=== PATIENT | female | born 1940 | race Caucasian/White ===

== ENCOUNTER 2019-03-03 15:00 | Emergency (ER) | payer MEDICARE, OTHER, SELFPAY ==
[2019-03-03 15:01] VITALS: BP 138/92; PULSE 112; RESP 20; TEMP 36.2; O2SAT 96; BMI 51.5
[2019-03-03] MEDS: Etomidate 20 MG/10 ML Vial IV (15:06)
[2019-03-03] MEDS: Rocuronium Bromide 50 MG/5 ML Vial 100 MG IV (15:07)
[2019-03-03 15:08] VITALS: O2SAT 96; O2SAT 97
--- NOTE | 2019-03-03 15:09 | CT_ITS ---
STUDY: CTA OF THE BRAIN REASON FOR EXAM: Female, 78 years old. Headache, mental status change RADIATION DOSAGE (If Supplied By Facility): CTDIvol = ( 20.34 ) mGy, DLP = ( 672.60 ) mGycm TECHNIQUE: CT angiography was performed with a multi-detector CT scanner. Data acquisition was obtained from the skull base through the vertex following intravenous administration of 100CC IV Isovue 370. MIP images were reconstructed from the axial data set. Post-processing of the angiographic images was performed, with multiplanar reformation and 3D reconstruction. Individualized dose optimization techniques were used for this CT. COMPARISON: None. FINDINGS: Normal bilateral petrous carotid arteries. Normal right cavernous carotid artery with a normal supraclinoid bifurcation. Normal left cavernous carotid artery with a normal supraclinoid bifurcation. Normal right A1 segments of the anterior cerebral artery. Normal left A1 segments of the anterior cerebral artery. Normal intact anterior communicating artery (ACOM). Normal bilateral A2 segments of the anterior cerebral arteries. Normal right M1 and M2 segments of the middle cerebral arteries, with a normal M1 bifurcation. Normal left M1 and M2 segments of the middle cerebral arteries, with a normal M1 bifurcation. Normal right posterior communicating artery (PCOM). Normal left posterior communicating artery (PCOM). Normal bilateral vertebral arteries. Normal basilar artery with a normal basilar bifurcation. The visualized bilateral superior cerebellar (SCA) arteries are normal. Normal bilateral P1, P2 and visualized P3 segments of the posterior cerebral arteries. There is no demonstrated aneurysm of the [place]. There is no demonstrated abnormality of the visualized brain. IMPRESSION: Normal [place] without a demonstrated aneurysm or hemodynamically significant stenosis. Electronically Signed: Emanuel Bermudez MD at 15:48 EDT , Service support , STUDY: CTA NECK WITH CONTRAST REASON FOR EXAM: Female, 78 years old. Mental status change, possible CVA RADIATION DOSAGE (If Supplied By Facility): CTDIvol = ( 20.34 ) mGy, DLP = ( 676.60 ) mGycm TECHNIQUE: CT angiography with multi-detector data acquisition was performed from the aortic arch to the skull base following intravenous administration of 100CC IV Isovue 370. MIP images were reconstructed from the axial data set. Post-processing of the angiographic images was performed, with multiplanar reformation and 3D reconstruction. Individualized dose optimization techniques were used for this CT. COMPARISON: None. FINDINGS: Patient is intubated, tip of the ET tube is not seen on this study AORTIC ARCH: There is atherosclerotic calcific plaque formation of the aortic arch and great vessels arising from the aortic arch, without a hemodynamically significant stenosis. There is a normal origin of the brachiocephalic, left common carotid, and left subclavian arteries. Normal origins of the brachiocephalic, left common carotid, and left subclavian arteries. RIGHT CAROTID ARTERIES: Normal right common carotid artery (CCA). There is moderate atherosclerotic plaque formation with moderate narrowing of the right carotid bulb. There is moderate atherosclerotic plaque formation of the origin of the right internal carotid artery with an estimated stenosis of 50-69% stenosis. This is best seen on axial source image 96/239, on series 2. The right ICA quickly resumes is normal course and caliber without further stenosis. Normal origin of the right external carotid artery (ECA). LEFT CAROTID ARTERIES: Normal left common carotid artery (CCA). There is mild atherosclerotic plaque formation with minimal narrowing of the left carotid bulb. There is mild atherosclerotic plaque formation of the origin of the left internal carotid artery with less than 50% cross sectional diameter stenosis. Normal visualized cervical portion of the left internal carotid artery. Normal origin of the left external carotid artery (ECA). VERTEBRAL ARTERIES: Normal bilateral vertebral arteries. Source images do not show evidence of a suspicious enhancing lesion, no airway narrowing or deviation. CT/CTA Head W/WO Contrast IMPRESSION: Moderate calcified atherosclerotic plaque at the right common carotid artery bulb with stenosis in the proximal right ICA of between 50 and 69% best seen on axial image 96/239 series 2. Mild calcified plaque in the left common carotid artery bulb with no significant left ICA stenosis. Unremarkable vertebral arteries. Electronically Signed: Emanuel Bermudez MD at 15:47 EDT , Service support ,
--- NOTE | 2019-03-03 15:09 | CT_ITS ---
STUDY: CTA OF THE BRAIN REASON FOR EXAM: Female, 78 years old. Headache, mental status change RADIATION DOSAGE (If Supplied By Facility): CTDIvol = ( 20.34 ) mGy, DLP = ( 672.60 ) mGycm TECHNIQUE: CT angiography was performed with a multi-detector CT scanner. Data acquisition was obtained from the skull base through the vertex following intravenous administration of 100CC IV Isovue 370. MIP images were reconstructed from the axial data set. Post-processing of the angiographic images was performed, with multiplanar reformation and 3D reconstruction. Individualized dose optimization techniques were used for this CT. COMPARISON: None. FINDINGS: Normal bilateral petrous carotid arteries. Normal right cavernous carotid artery with a normal supraclinoid bifurcation. Normal left cavernous carotid artery with a normal supraclinoid bifurcation. Normal right A1 segments of the anterior cerebral artery. Normal left A1 segments of the anterior cerebral artery. Normal intact anterior communicating artery (ACOM). Normal bilateral A2 segments of the anterior cerebral arteries. Normal right M1 and M2 segments of the middle cerebral arteries, with a normal M1 bifurcation. Normal left M1 and M2 segments of the middle cerebral arteries, with a normal M1 bifurcation. Normal right posterior communicating artery (PCOM). Normal left posterior communicating artery (PCOM). Normal bilateral vertebral arteries. Normal basilar artery with a normal basilar bifurcation. The visualized bilateral superior cerebellar (SCA) arteries are normal. Normal bilateral P1, P2 and visualized P3 segments of the posterior cerebral arteries. There is no demonstrated aneurysm of the [place]. There is no demonstrated abnormality of the visualized brain. IMPRESSION: Normal [place] without a demonstrated aneurysm or hemodynamically significant stenosis. Electronically Signed: Emanuel Bermudez MD at 15:48 EDT , Service support , STUDY: CTA NECK WITH CONTRAST REASON FOR EXAM: Female, 78 years old. Mental status change, possible CVA RADIATION DOSAGE (If Supplied By Facility): CTDIvol = ( 20.34 ) mGy, DLP = ( 676.60 ) mGycm TECHNIQUE: CT angiography with multi-detector data acquisition was performed from the aortic arch to the skull base following intravenous administration of 100CC IV Isovue 370. MIP images were reconstructed from the axial data set. Post-processing of the angiographic images was performed, with multiplanar reformation and 3D reconstruction. Individualized dose optimization techniques were used for this CT. COMPARISON: None. FINDINGS: Patient is intubated, tip of the ET tube is not seen on this study AORTIC ARCH: There is atherosclerotic calcific plaque formation of the aortic arch and great vessels arising from the aortic arch, without a hemodynamically significant stenosis. There is a normal origin of the brachiocephalic, left common carotid, and left subclavian arteries. Normal origins of the brachiocephalic, left common carotid, and left subclavian arteries. RIGHT CAROTID ARTERIES: Normal right common carotid artery (CCA). There is moderate atherosclerotic plaque formation with moderate narrowing of the right carotid bulb. There is moderate atherosclerotic plaque formation of the origin of the right internal carotid artery with an estimated stenosis of 50-69% stenosis. This is best seen on axial source image 96/239, on series 2. The right ICA quickly resumes is normal course and caliber without further stenosis. Normal origin of the right external carotid artery (ECA). LEFT CAROTID ARTERIES: Normal left common carotid artery (CCA). There is mild atherosclerotic plaque formation with minimal narrowing of the left carotid bulb. There is mild atherosclerotic plaque formation of the origin of the left internal carotid artery with less than 50% cross sectional diameter stenosis. Normal visualized cervical portion of the left internal carotid artery. Normal origin of the left external carotid artery (ECA). VERTEBRAL ARTERIES: Normal bilateral vertebral arteries. Source images do not show evidence of a suspicious enhancing lesion, no airway narrowing or deviation. CT/CTA Neck W/WO Contrast IMPRESSION: Moderate calcified atherosclerotic plaque at the right common carotid artery bulb with stenosis in the proximal right ICA of between 50 and 69% best seen on axial image 96/239 series 2. Mild calcified plaque in the left common carotid artery bulb with no significant left ICA stenosis. Unremarkable vertebral arteries. Electronically Signed: Emanuel Bermudez MD at 15:47 EDT , Service support ,
--- NOTE | 2019-03-03 15:10 | CM.ED ---
SOCIAL WORK THIS WORKER RESPONDED TO STROKE ALERT. NO FAMILY PRESENT AT THIS TIME. ALICIA METCALF, DISPUTE RESOLUTION SPECIALIST, BARREL ASSEMBLY INSPECTOR.
--- NOTE | 2019-03-03 15:12 | EKG12_ITS ---
Test Reason : STROKE Blood Pressure : / mmHG Vent. Rate : 096 BPM Atrial Rate : 096 BPM P-R Int : 182 ms QRS Dur : 138 ms QT Int : 408 ms P-R-T Axes : 062 122 043 degrees QTc Int : 515 ms Normal sinus rhythm Right bundle branch block Abnormal ECG Confirmed by JASKARAN DOE, SANTY ([id number]), loan expeditor MARISOL JUSTIN ([id number]) on 03/05/2019 1:29:35 PM Referred By: XANDER Confirmed By:SANTY JESSICA MD
--- NOTE | 2019-03-03 15:12 | CT_ITS ---
STUDY: CT BRAIN WITHOUT CONTRAST REASON FOR EXAM: Female, 78 years old. Unresponsive RADIATION DOSAGE (If Supplied By Facility): CTDIvol = ( 44.99 ) mGy, DLP = ( 812.98 ) mGycm TECHNIQUE: Transaxial CT imaging of the brain was performed without administration of intravenous contrast material. Individualized dose optimization techniques were used for this CT. COMPARISON: No relevant priors. FINDINGS: Normal soft tissue structures. Normal calvarium. Patient is intubated Normal size ventricles and extra-axial spaces for the patient's age. Normal white matter tracts of the cerebral hemispheres. Normal basal ganglia and thalami. Normal brainstem. Normal cerebellum. There is no intracranial hemorrhage. There are no findings of an acute ischemic infarction. Normal visualized paranasal sinuses. CT/Brain/Head without Contrast IMPRESSION: Age consistent changes, no acute findings N.B. : The above information has been verbally conveyed by Emanuel Bermudez MD to Moisés Hernandez MD, on 03/03/2019 15:24:51 (ET). Electronically Signed: Emanuel Bermudez MD at 15:26 EDT , Service support ,
--- NOTE | 2019-03-03 15:14 | RAD_ITS ---
STUDY: X-RAY - ABDOMEN/PELVIS REASON FOR EXAM: Female, 78 years old. NG tube placement TECHNIQUE: Single AP view of the abdomen / pelvis. COMPARISON: None. FINDINGS: NG tube has been placed, tip in the body the stomach. No acute abdominal finding, there are vascular calcifications noted. Bony structures show degenerative change RAD/Abdomen Single View (Portable) IMPRESSION: NG tube tip in the body of the stomach Electronically Signed: Emanuel Bermudez MD at 16:19 EDT , Service support ,
[2019-03-03 15:16] LABS: Bedside Glucose 218 mg/dL (70-110)
--- NOTE | 2019-03-03 15:16 | ED.VIS.STROK ---
History of Present Illness Chief Complaint: Neuro S/Sx Informant: Chief Procurement Officer Onset: Today Context: Sudden Onset Timing: Continuous Quality and Location: - - Last known well 1400 Current Severity: 10/10 Maximum Severity: 10/10 Worsened by: Nothing Relieved by: Nothing Associated Symptoms: - - patient nonverbal and GCS is 4 for eyes, 1 for verbal and 1 for motor. Total 6 Narrative: Patient last known well by at 1400. Patient has history of diabetes. No other history is obtainable. Unknown if she is on anticoagulant. Prior similar symptoms: No Recent Illness/Hospitalization: No Past Medical History - Allergies and Home Meds Allergies/Adverse Reactions: Allergies No Known Allergies Allergy (Verified 03/03/19 15:06) Primary Care Physician: Betty Hayes DO [Primary Care Provider] - Prior records reviewed: Yes Surgical History: no surgical history Lives: Spouse/ Significant Other Smoking Status: Never smoker - Family History Maternal Family History: Reports: No pertinent history Review of Systems ROS: Unable to Obtain - GCS 6 Physical Exam Vital Signs/Narrative: Vital Signs Temp Pulse Resp BP Pulse Ox 03/03/19 15:08 96 03/03/19 15:01 97.2 F L 112 H 20 H 138/92 H 96 - NIH Stroke Scale 1a Level of Consciousness: 3 1b LOC Questions (Score 2 if aphasic/stupor): 2 1c LOC Commands (Only score 1st attempt): 2 2 Best Gaze (If aphasic, use reflexive mvmts.): 1 4 Facial Palsy: 0 5 Motor Arm Right (UN = amputation/fusion): 3 5 Motor Arm Left: 4 6 Motor Leg Right: 4 6 Motor Leg Left: 4 7 Limb ataxia (Only + if out of proportion): UN 8 Sensory (Aphasia/stupor=0 or 1, coma=2): 2 9 Best Language: 3 10 Dysarthria (mute, coma=2, intubated=UN): 2 11 Extinction and Inattention (only scored if +): 2 Total Score: 32 General: Well nourished, Well developed, Obese Head: Normocephalic, Atraumatic Eyes: Pale conjunctiva, Scleral icterus. Negative for: Perrl, EOMI ENT: No rhinorrhea, TM's clear, Dry mucous membranes Neck: Supple, Nontender. Negative for: No lymphadenopathy, No JVD Cardiovascular: Regular rate, Regular rhythm, No murmurs, Normal S1, Normal S2 Respiratory: CTA bilaterally, Decreased Air Movement, - Abdomen: Soft, Nontender, Hypoactive bowel sounds. Negative for: Normal bowel sounds Rectal: Deferred Back: Nontender, Normal Inspection - The wrist both cords I would be a clot there is no is like what Extremities: Edema Skin: No rash Neurological: - - GCS 6 Diagnostic/Tx/Re-eval . 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 CTA was obtained to evaluate for aneurysm. None was noted per my review. Awaiting formal read by radiologist. Chest X-Ray - ED: 1 View - Chest x-ray Esperanza been explained is is here for insurance she has transfer that is why - Rhythm Strip Rhythm Strip: Sinus Rhythm Rate: 110 Ectopy: None - EKG Initial EKG Interpretation: Sinus Rhythm - Ventricular rate is 96. There is evidence of right bundle branch block. [place] interval is normal. Q sabianism is 138 ms. QT interval is normal once corrected. [place] to the right. - Medical Decision Making Stroke Team Activated: Yes IV TPA Administered: No - Pontine hemorrhage Intraarterial Therapy: Not a candidate Patient arrived with marked depressed level of consciousness. With bilateral Babinski sign, disconjugate gaze, nystagmus concern for intracranial bleed. Since GCS was 6 she was prepped for oral tracheal invasion. She was oral tracheal intubated with a 7.5 endotracheal tube. She received 20 mg of etomidate IV push followed by 100 mg of rocuronium IV push. She was easily oral tracheal intubated. She was taken emergently to the scanner. CT of the head reveals a central pontine hemorrhage. Spoke with . I was informed she is on Coumadin. Vitamin K was ordered. Kcentra is pending INR dose. Patient requested [facility]. [place] was asked to contact all the lunch line. is aware that she is in critical condition. Spoke to transfer personnel at [facility]. Spoke to Dr. Griggs the stroke neurologist. She agrees with treatment plan. Patient's most recent blood pressure is 229 systolic. Cardene drip was ordered. Spoke with pharmacist regarding Kcentra and IV vitamin K. Vertical care time 33 minutes excluding billable procedural time.. Intubation by RSI technique without difficulty. Patient oral tracheal intubated on first attempt without difficulty. There is appropriate color change on capnometer. Endotracheal tube was noted at the jesica and was pulled back 2-3 cm. OG confirms proper placement. Procedure: 1. Oral tracheal intubation by RSI technique 2. Critical care time 33 minutes, bedside care, facilitate transfer, discussion with accepting physician and transfer personnel. ED Disposition - Plan for ED Patient: Disposition: [facility] - Main Diagnosis: Pontine hemorrhagic stroke Referrals: Betty Hayes DO [Primary Care Provider] -
--- NOTE | 2019-03-03 15:20 | ED.DCSUM_ITS ---
History of Present Illness Chief Complaint: Neuro S/Sx Informant: Hearing Screen Coordinator Onset: Today Context: Sudden Onset Timing: Continuous Quality and Location: - - Last known well 1400 Current Severity: 10/10 Maximum Severity: 10/10 Worsened by: Nothing Relieved by: Nothing Associated Symptoms: - - patient nonverbal and GCS is 4 for eyes, 1 for verbal and 1 for motor. Total 6 Narrative: Patient last known well by at 1400. Patient has history of diabetes. No other history is obtainable. Unknown if she is on anticoagulant. Prior similar symptoms: No Recent Illness/Hospitalization: No Past Medical History - Allergies and Home Meds Allergies/Adverse Reactions: Allergies No Known Allergies Allergy (Verified 03/03/19 15:06) Primary Care Physician: Betty Hayes DO [Primary Care Provider] - Prior records reviewed: Yes Surgical History: no surgical history Lives: Spouse/ Significant Other Smoking Status: Never smoker - Family History Maternal Family History: Reports: No pertinent history Review of Systems ROS: Unable to Obtain - GCS 6 Physical Exam Vital Signs/Narrative: Vital Signs Temp Pulse Resp BP Pulse Ox 03/03/19 15:08 96 03/03/19 15:01 97.2 F L 112 H 20 H 138/92 H 96 - NIH Stroke Scale 1a Level of Consciousness: 3 1b LOC Questions (Score 2 if aphasic/stupor): 2 1c LOC Commands (Only score 1st attempt): 2 2 Best Gaze (If aphasic, use reflexive mvmts.): 1 4 Facial Palsy: 0 5 Motor Arm Right (UN = amputation/fusion): 3 5 Motor Arm Left: 4 6 Motor Leg Right: 4 6 Motor Leg Left: 4 7 Limb ataxia (Only + if out of proportion): UN 8 Sensory (Aphasia/stupor=0 or 1, coma=2): 2 9 Best Language: 3 10 Dysarthria (mute, coma=2, intubated=UN): 2 11 Extinction and Inattention (only scored if +): 2 Total Score: 32 General: Well nourished, Well developed, Obese Head: Normocephalic, Atraumatic Eyes: Pale conjunctiva, Scleral icterus. Negative for: Perrl, EOMI ENT: No rhinorrhea, TM's clear, Dry mucous membranes Neck: Supple, Nontender. Negative for: No lymphadenopathy, No JVD Cardiovascular: Regular rate, Regular rhythm, No murmurs, Normal S1, Normal S2 Respiratory: CTA bilaterally, Decreased Air Movement, - Abdomen: Soft, Nontender, Hypoactive bowel sounds. Negative for: Normal bowel sounds Rectal: Deferred Back: Nontender, Normal Inspection - The wrist both cords I would be a clot there is no is like what Extremities: Edema Skin: No rash Neurological: - - GCS 6 Diagnostic/Tx/Re-eval . 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 CTA was obtained to evaluate for aneurysm. None was noted per my review. Awaiting formal read by radiologist. Chest X-Ray - ED: 1 View - Chest x-ray Esperanza been explained is is here for insurance she has transfer that is why - Rhythm Strip Rhythm Strip: Sinus Rhythm Rate: 110 Ectopy: None - EKG Initial EKG Interpretation: Sinus Rhythm - Ventricular rate is 96. There is evidence of right bundle branch block. [place] interval is normal. Q adventism is 138 ms. QT interval is normal once corrected. [place] to the right. - Medical Decision Making Stroke Team Activated: Yes IV TPA Administered: No - Pontine hemorrhage Intraarterial Therapy: Not a candidate Patient arrived with marked depressed level of consciousness. With bilateral Babinski sign, disconjugate gaze, nystagmus concern for intracranial bleed. Since GCS was 6 she was prepped for oral tracheal invasion. She was oral tracheal intubated with a 7.5 endotracheal tube. She received 20 mg of etomidate IV push followed by 100 mg of rocuronium IV push. She was easily oral tracheal intubated. She was taken emergently to the scanner. CT of the head reveals a central pontine hemorrhage. Spoke with . I was informed she is on Coumadin. Vitamin K was ordered. Kcentra is pending INR dose. Patient requested [facility]. [place] was asked to contact all the lunch line. is aware that she is in critical condition. Spoke to transfer personnel at [facility]. Spoke to Dr. Griggs the stroke neurologist. She agrees with treatment plan. Patient's most recent blood pressure is 229 systolic. Cardene drip was ordered. Spoke with pharmacist regarding Kcentra and IV vitamin K. Vertical care time 33 minutes excluding billable procedural time.. Intubation by RSI technique without difficulty. Patient oral tracheal intubated on first attempt without difficulty. There is appropriate color change on capnometer. Endotracheal tube was noted at the jesica and was pulled back 2-3 cm. OG confirms proper placement. Procedure: 1. Oral tracheal intubation by RSI technique 2. Critical care time 33 minutes, bedside care, facilitate transfer, discussion with accepting physician and transfer personnel. ED Disposition - Plan for ED Patient: Disposition: [facility] - Main Diagnosis: Pontine hemorrhagic stroke Referrals: Betty Hayes DO [Primary Care Provider] -
--- NOTE | 2019-03-03 15:22 | CM.ED ---
SOCIAL WORK FACILITATED PHONE CALL TO PATIENT'S FOR DR. TERRELL TO DISCUSS PATIENT'S STATUS AND PLAN OF CARE. DR. TERRELL TO CONTACT THE [facility] FOR TRANSFER. ALICIA METCALF MSW, PATIENT CASE MANAGER.
[2019-03-03 15:30] VITALS: BP 229/90; PULSE 105; RESP 16; O2SAT 96
--- NOTE | 2019-03-03 15:35 | RAD_ITS ---
We are attempting to reach Moisés Hernandez MD to discuss findings. An addendum with communication details will be sent when the communication is complete. STUDY: X-RAY CHEST REASON FOR EXAM: Female, 78 years old. Post intubation TECHNIQUE: Single AP portable view of the chest. COMPARISON: None. FINDINGS: EKG leads overlie the chest. Patient has been intubated, tip of the ET tube is within the right mainstem bronchus and needs to be pulled back 3 to 4 cm. Opacification developing in the left hemithorax perhaps due to poor ventilation. Chronic interstitial changes noted in both lung [place]. There is no demonstrated pleural abnormality. There is cardiomegaly. Normal mediastinum and oscar. Normal visualized pulmonary arteries. There is atherosclerotic calcification of the aortic arch with tortuosity. There are diffuse degenerative changes of the visualized thoracic spine. There is degenerative osteoarthritis of the bilateral shoulders. There is no demonstrated abnormality of the visualized soft tissue structures of the upper abdomen. RAD/Chest 1 View IMPRESSION: Patient is intubated, tip of the ET tube is in the right mainstem bronchus and needs to be retracted 3 to 4 cm. Opacification the left hemithorax perhaps due to inadequate ventilation Chronic interstitial changes in both lung [place]. Electronically Signed: Emanuel Bermudez MD at 16:09 EDT , Service support ,
--- NOTE | 2019-03-03 15:35 | CON.PCM_ITS ---
Problem List (1) ICH (intracerebral hemorrhage) Status: Acute Qualifiers: Intracerebral hemorrhage etiology: nontraumatic Cerebral hemorrhage location: brainstem Reason for Consult Date of Consultation: 03/03/19 Reason for Consultation: Stroke alert- ICH History of Present Illness: The patient is a 78 year old F with PMH HTN, HLD, DM, morbid obesity admitted with stroke like symptoms. History could not be obtained form patient as she is intubated. History is obtained from medical records and documentation. Per documentation she was LKW at around 13:45 pm when she had slurred speech and left sided weakness, became more obtunded enroute to [facility] ED, on arrival to ED NIHSS was 32 per ED documentation with GCS of 6 and was intub[address] head showed central pontine hemorrhage. Patient to be transferred to tertiary center for further management. Per paramedics no documentation of patient being on AP or AC at present. [] Past Medical History Past Medical History (Chronic Problems): Chronic Problems Hypertension (Chronic) Diabetes type 2, controlled (Chronic) Lymphedema of both lower extremities (Chronic) Hyperlipemia (Chronic) Bilateral lower leg cellulitis (Chronic) Obesity, morbid (more than 100 lbs over ideal weight or BMI > 40) (Chronic) Allergies No Known Allergies Allergy (Verified 03/03/19 15:06) Home Medications: Ambulatory Orders Medication Instructions Recorded Atorvastatin Calcium [Lipitor] 20 mg PO QHS 04/03/16 Furosemide [Lasix] 40 mg PO BIDLX 04/03/16 Pioglitazone [Actos] 30 mg PO DAILY 04/03/16 Ceftriaxone 2 gm IV Q24 #2 vial 04/05/16 Lisinopril [Zestril] 10 mg PO DAILY #1 tablet 04/05/16 Lisinopril [Zestril] 10 mg PO DAILY #30 tablet 04/05/16 Metoprolol Tartrate [Lopressor 25 mg PO BID #60 tablet 04/05/16 (beta phuc)] Surgical History: no surgical history Lives: Spouse/ Significant Other Smoking Status: Never smoker Tobacco Use: - - patient intubated Drugs: - - patient intubated - *Family History Maternal History Items: No pertinent history Review of Systems Constitutional: Reports: - - ROS could not be obtained as patient is intubated Patient Problems: Active and Suspected Problems ICH (intracerebral hemorrhage) (Acute) - Physical Exam General: - - comatose, s/p intubation HEENT: Normocephalic Neck: Supple Lungs: Normal air movement Cardiovascular: Normal S1, Normal S2 Abdomen: Bowel Sounds Present Extremities: No cyanosis Neurological: - - comatose, s/p intubation, pupils B/L pinpoint, no response to DPS, limited Neurology examination, sensory/cerebellar/gait could not be assessed, plantar B/L extensor, Reflexes + B/L B/S/T/K/A Vital Signs Temp Pulse Resp BP Pulse Ox 97.2 F L 112 H 20 H 138/92 H 96 03/03/19 15:01 03/03/19 15:01 03/03/19 15:01 03/03/19 15:01 03/03/19 15:08 Oxygen Delivery Method Room Air Weight: 119.748 kg Body Mass Index (BMI) 51.5 Finger Stick Blood Glucose 218 POC Glucose 03/03/19 15:07 POC Glucose 218 H Assessment/Plan All Active Problems ICH (intracerebral hemorrhage) (Acute) Creatinine elevation (Acute) The patient is a 78 year old F with PMH HTN, HLD, DM, morbid obesity admitted with stroke like symptoms. History could not be obtained form patient as she is intubated. History is obtained from medical records and documentation. Per documentation she was LKW at around 13:45 pm when she had slurred speech and left sided weakness, became more obtunded enroute to [facility] ED, on arrival to ED NIHSS was 32 per ED documentation with GCS of 6 and was intub[address] head showed central pontine hemorrhage. Patient to be transferred to tertiary center for further management. Per paramedics no documentation of patient being on AP or AC at present Impression Central Pontine hemorrhage Plan -CT head reviewed -Urgent Neurosurgery evaluation -Transfer to tertiary center for NICU admission and further evaluation -NS 3% @ 50 ml/hr, check S. Na and S. Osmol q 8 hrs, stop if NA > 150 or S. Osmol > 320 -CTA head/neck -MRI brain -Monitor CVP, intracranial pressure per NICU parameters -Maintain SBP 140-160 mmHg -Prognosis guarded -GI/DVT prophylaxis -Please call with questions if any -Thank you for allowing us to participate in patient's care and management Code Visit Inpatient E&M: [id number] Init Hosp L3
[2019-03-03 15:48] LABS: Absolute Lymphocyte Count 2.02 X10^3/ul (0.83-4.51); Absolute Neutrophil Count 7.6 X10^3/uL (2.0-7.7); Basophil# 0.01 X10^3/uL; Basophil% 0.1 % (0-1); Eosinophil# 0.09 X10^3/uL; Eosinophils% 0.9 % (0-5); Hematocrit 43.6 % (37-47); Hemoglobin 13.8 g/dl (12.0-15.0); Lymphocyte # 2.02 X10^3/ul (4.0); Lymphocyte % 19.6 % (19-41); Mean Corp Hgb Conc 31.7 g/gl (32-36); Mean Corpuscular Hgb 27.8 pg (27.0-32.0); Mean Corpuscular Volume 87.7 fL (81-99); Mean Platelet Vol. 9.8 fl (6.2-12.0); Monocyte# 0.59 X10^3/uL; Monocyte% 5.7 % (0-10); Neutrophil # 7.55 X10^3/uL (2.7-7.7); Neutrophil % 73.3 % (47-70); Platelet Count 265 K/mm3 (150-450); RBC Distribution Width CV 14.5 % (11.6-14.6); RBC Distribution Width SD 46.2 fl (35.1-43.9); Red Blood Count 4.97 M/mm3 (4.2-5.4); White Blood Count 10.3 K/mm3 (4.4-11.0)
[2019-03-03] MEDS: Propofol 200 MG/20 ML Vial 60 MG IV BOLUS (15:48)
[2019-03-03] MEDS: Propofol 10MG/Ml 1,000 MG/100 ML Bottle 7.185 MG CONT INF (15:48)
[2019-03-03 15:51] LABS: POSITIVE COUNT NO; POSITIVE DIFFERENTIAL NO; POSITIVE MORPHOLOGY NO
[2019-03-03 15:53] VITALS: BP 232/88; PULSE 103
[2019-03-03 15:57] VITALS: BP 200/86; PULSE 104; RESP 16; O2SAT 96
[2019-03-03 16:02] LABS: Anion Gap 4 (5-15); BUN 33 mg/dL (7-18); BUN/Creat Ratio 28.9 RATIO (10-20); Calcium,Total 8.1 mg/dL (8.5-10.1); Chloride 105 mmol/L (98-107); Creatinine, Serum 1.14 mg/dL (0.55-1.02); EST Glomerular Filtration Rate 49 mL/min (>60); Est Glom Filt Rate - Afr Amer 60 mL/min (>60); Estimated Creatinine Clearance 30.16 ml/min; Glucose 229 mg/dL (74-106); Potassium 4.4 mmol/L (3.5-5.1); Sodium Level 135 mmol/L (136-145)
--- NOTE | 2019-03-03 16:15 | CM.ED ---
SOCIAL WORK CALL TO PATIENT'S TO UPDATE ON STATUS OF TRANSFER. REPORTS IS EN ROUTE TO THE [facility] ALICIA METCALF, MACHINE DEICER [employer]LEMENT WINDER, ADMINISTRATIVE OFFICE MANAGER.
[2019-03-03 16:29] LABS: International Normalized Ratio 2.8; Prothrombin Time (Protime)PT. 29.4 SECONDS (11.7-14.9)
[2019-03-03 16:30] LABS: Partial Thromboplast Time 42.8 Seconds (24.1-36.2)
== END 2019-03-03 16:25 | disposition short-term general hospital (02) ==
PROVIDERS: Emergency Provider Emergency Medicine; Family Provider Family Medicine; PCP Family Medicine
DX: I61.3 Nontraumatic intracerebral hemorrhage in brain stem (principal); R47.81 Slurred speech; G81.94 Hemiplegia, unspecified affecting left nondominant side; R40.2432 Glasgow coma scale score 3-8, at arrival to emergency department; I10 Essential (primary) hypertension; I89.0 Lymphedema, not elsewhere classified; E11.9 Type 2 diabetes mellitus without complications; E78.5 Hyperlipidemia, unspecified; E66.01 Morbid (severe) obesity due to excess calories; Z79.01 Long term (current) use of anticoagulants; Z79.899 Other long term (current) drug therapy
CPT/HCPCS: 31500; 51702; 70450; 70496; 70498; 71045; 74018; 80048; 82962; 84484; 85025; 85610; 85730; 93005; 94002; 96365; 96367; 99251; 99285; C9132; J7030; J7050; Q9967; G0463; J3490